=== PATIENT | female | born 1955 | race Caucasian/White ===

== ENCOUNTER 2025-04-01 07:55 | Outpatient (CLI) | payer BC, MEDICAID ==
[~2025-04-01] VITALS: Ht 161.3 cm; Wt 56.7 kg
[~2025-04-01 07:55] MED LIST: ASPI-1053 PO; CYAN-104 PO; FOLI1TAB27 PO; MELA3TAB39 PO; MELO-100 PO; METH2.5T PO; MULT-1085 PO; PRED5TAB49 PO
[2025-04-01 08:21] LABS: TOTAL HEMOGLOBIN 15.8 G/dl (12.0-16.0)
[2025-04-01] MEDS: albuterol 2.5 MG/3 ML nebule NEB ONE (09:01)
[2025-04-01 09:10] VITALS: PULSE 78; RESP 16; O2SAT 96
[2025-04-01 09:25] VITALS: PULSE 86; RESP 16
--- NOTE | 2025-04-02 15:11 | PROCEDURE NOTE - Respiratory ---
Procedure Note-Respiratory Providers to CC Copies To 1: ELSA GARCÍA MD Procedure Name: This is a complete pulmonary function dated April 01, 2025. Hemoglobin measurement was done as part of the study. Spirometry measurements: There is substantial reduction in both the forced vital capacity and the FEV1. The FEV1 ratio is mildly reduced. Several of the flow rate measurements show reduction. After inhaled bronchodilator was administered, some of the flow rates show very slight improvement. Spirometry documents [id number] obstructive ventilatory defect which is slightly responsive to inhaled bronchodilator. Lung volume measurements: The total lung capacity and the functional residual capacity are both normal. The residual volume is somewhat elevated. This suggests some degree of air trapping within the lungs. Lung diffusion measurement: The DLCO measurement is normal. It is noted that the KVO measurement is excellent. There is slight reduction in the alveolar volume measurement. It is noted that the hemoglobin measurement is normal. Airway resistance measurement: The airway resistance measurement is elevated. Overall conclusion: This study is abnormal. There is evidence for [id number] obstructive ventilatory defect. The patient improves very slightly with inhaled bronchodilator. The lung diffusion capacity is normal. There is no evidence for restrictive lung disease. We have a previous study for comparison dated September 2016. Over the past 8-1/2 years the vital capacity has decreased from 2.1 L to 1.8 L. The FEV1 has decreased from 1.4 L to 1.27 L. close pulmonary follow-up is recommended for this patient with [id number] obstructive lung disease. This patient should continue to use inhaled bronchodilator. ELSA GARCÍA MD Apr 02, 2025 15:11
== END 2025-04-01 23:59 | disposition home or self-care (01) ==
LOC: RT 07:55
PROVIDERS: ATTEND Internal Medicine Pulmonary Disease
DX: J44.9 Chronic obstructive pulmonary disease, unspecified (principal)
CPT/HCPCS: 85018; 94060; 94727; 94729; 94760